=== PATIENT | female | born 1965 | race Caucasian/White ===

== ENCOUNTER → 2024-07-11 | Outpatient (CLI) | payer OTHER, SELFPAY ==
[2024-07-11 10:21] LABS: Erythrocyte Sedimentation Rate 3 mm/hr (0-30)
[2024-07-11 10:42] LABS: CRP 3.05 mg/L (0.0-3.0)
[2024-07-12 13:08] LABS: Calprotectin, Stool 6 ug/g (0-120)
== END | disposition home or self-care (01) ==
LOC: LAB 09:46
PROVIDERS: PCP Family Medicine; Referring Provider Student in an Organized Health Care Education/Training Program; Visit Provider Student in an Organized Health Care Education/Training Program
DX: K58.9 Irritable bowel syndrome, unspecified (principal); R19.5 Other fecal abnormalities
CPT/HCPCS: 36415; 83993; 85652; 86140; 87177; 87209; 87329; 87493; 87506

== ENCOUNTER → 2024-07-12 | Outpatient (CLI) | payer OTHER, SELFPAY ==
[2024-07-13 15:08] LABS: Endomysial Antibody IgA Negative (Negative); Immunoglobulin A 203 mg/dL (87-352); t-Transglutaminase IgA <2 U/mL (0-3)
== END | disposition home or self-care (01) ==
LOC: LAB 09:11
PROVIDERS: PCP Family Medicine; Referring Provider Student in an Organized Health Care Education/Training Program; Visit Provider Student in an Organized Health Care Education/Training Program
DX: R19.5 Other fecal abnormalities (principal); K58.9 Irritable bowel syndrome, unspecified
CPT/HCPCS: 82784; 83516; 86255